=== PATIENT | male | born 1990 ===

== ENCOUNTER 2021-04-10 18:47 | Emergency (ER) | payer SELFPAY ==
[2021-04-10 19:03] VITALS: BP 129/72; PULSE 75; RESP 16; TEMP 36.6; O2SAT 99; BMI 24.9
--- NOTE | 2021-04-10 19:10 | DI.RAD.S_ITS ---
PROCEDURE: XR ELBOW RT MIN 3V INDICATIONS: Fall from ladder elbow/forearm pain TECHNIQUE: 3 views of the elbow were acquired. COMPARISON: None. FINDINGS: Bones: A small osseous fragment is seen projecting over the trochlea on the lateral view, which is not definitely visualized on the additional views. Findings could represent a small fracture of uncertain origin. The radial head appears to be intact. No suspicious bony lesions. Soft tissues: Questionable small elbow joint effusion. No suspicious soft tissue calcifications. IMPRESSION: Possible small osseous fragment projecting over the elbow joint on lateral view only, which could represent a small fracture of uncertain origin. Further evaluation could be obtained with CT, or repeat radiographs in 7-10 days. Dictated by: Enrrique Mayorga M.D. on 04/10/2021 at 20:09 Approved by: Enrrique Mayorga M.D. on 04/10/2021 at 20:12
--- NOTE | 2021-04-10 19:10 | DI.RAD.S_ITS ---
PROCEDURE: XR FOOT LT MIN 3V INDICATIONS: Fell from ladder ankle/foot pain TECHNIQUE: 3 views of the foot were acquired. COMPARISON: None. FINDINGS: Bones: No acute fractures or dislocations. No suspicious bony lesions. There is possible mild widening of the 1st intermetatarsal distance. Soft tissues: Soft tissue edema is seen at the dorsum of the foot. IMPRESSION: Possible mild widening of the 1st intermetatarsal distance could indicate an injury to the Lisfranc ligament. However, the findings are nonspecific. If there is clinical suspicion, bilateral weight-bearing radiographs of the feet could be obtained to evaluate for symmetry compared to the contralateral side. No acute fracture is seen. Soft tissue edema is seen at the dorsum of the foot. Dictated by: Enrrique Mayorga M.D. on 04/10/2021 at 20:07 Approved by: Enrrique Mayorga M.D. on 04/10/2021 at 20:09
--- NOTE | 2021-04-10 19:10 | DI.RAD.S_ITS ---
PROCEDURE: XR ANKLE LT MIN 3V INDICATIONS: Fall from ladder ankle/foot TECHNIQUE: 3 views of the ankle were acquired. COMPARISON: None. FINDINGS: Bones: No acute fractures or dislocations. Ankle mortise is normally aligned. No suspicious bony lesions. Soft tissues: Soft tissue edema is seen at the dorsum of the foot. IMPRESSION: No acute osseous abnormality. If clinical suspicion and/or symptoms persist, additional imaging with repeat plain films, or advanced imaging (e.g. CT, MRI) may be helpful for further assessment. Dictated by: Enrrique Mayorga M.D. on 04/10/2021 at 20:12 Approved by: Enrrique Mayorga M.D. on 04/10/2021 at 20:13
--- NOTE | 2021-04-10 19:11 | DI.RAD.S_ITS ---
PROCEDURE: XR FOREARM RT 2V INDICATIONS: Fall from ladder elbow/forearm pain TECHNIQUE: 2 views of the forearm were acquired. COMPARISON: None. FINDINGS: Bones: No acute fractures or dislocations. No suspicious bony lesions. Soft tissues: No suspicious soft tissue calcifications or masses. IMPRESSION: No acute osseous abnormality. If clinical suspicion and/or symptoms persist, additional imaging with repeat plain films, or advanced imaging (e.g. CT, MRI) may be helpful for further assessment. Dictated by: Enrrique Mayorga M.D. on 04/10/2021 at 20:13 Approved by: Enrrique Mayorga M.D. on 04/10/2021 at 20:14
--- NOTE | 2021-04-10 21:51 | ED.FALL ---
HPI - Fall General Chief Complaint: Fall Stated Complaint: Fell off ladder, LT foot RT arm injury Time Seen by Provider: 04/10/21 21:51 Source: patient Mode of arrival: Wheelchair History of Present Illness HPI Narrative: Patient is a 30-year-old male who presents after fall from ladder. He said he was picking an apple around noon when he fell landing on his forearms and feet. His left foot is quite swollen and hurts a lot and his right elbow also request. Did not hit his head he did not lose consciousness he has no neck pain no nausea vomiting. He took Tylenol earlier for pain but still having some discomfort. He is able to move toes in his left foot but does hurt. Related Data Previous Rx's Medication Instructions Recorded hydrocodone 5 mg-acetaminophen 325 1 tab PO Q6H PRN #10 tab 04/10/21 mg tablet Allergies Allergy/AdvReac Type Severity Reaction Status Date / Time No Known Drug Allergies Allergy Verified 04/10/21 19:03 Review of Systems Review of Systems Narrative: GENERAL: Denies chills,fever HEENT: Denies throat pain RESPIRATORY: Denies dyspnea, cough, wheezing CARDIOVASCULAR: Denies chest pain, palpitations GASTROINTESTINAL: Denies nausea, vomiting MUSCULOSKELETAL: See HPI SKIN: No rash, no laceration, no pruritus NEUROLOGIC: Denies weakness, dizziness, headache, numbness, LOC 8 point review of systems is negative except for those stated above and HPI Patient History Social History Smoking Status: Never smoker Smoking Status: Never smoker alcohol intake frequency: holidays/special occasions only Substance Use Type: marijuana Exam Initial Vital Signs Initial Vital Signs: Vital Signs Temperature 97.8 F 04/10/21 19:03 Pulse Rate 75 04/10/21 19:03 Respiratory Rate 16 04/10/21 19:03 Blood Pressure 129/72 04/10/21 19:03 Pulse Oximetry 99 04/10/21 19:03 GENERAL: Alert well-appearing 30-year-old male and in [no acute] distress. HEENT: Head atraumatic,EOMI, pupils reactive, face symmetric, [moist] mucous membranes NECK: No vertebral tenderness no step-offs full range of motion CARDIOVASCULAR: Regular rate and rhythm without murmurs, rubs or gallops. RESPIRATORY: Breath sounds equal bilaterally, no wheezes rales or rhonchi. ABDOMEN: Soft, nontender. Normoactive bowel sounds all 4 quadrants. No guarding or rebound. EXTREMITIES: Normal range of motion, no clubbing or edema. Neurovascularly intact Significant left foot swelling able to move toes. Ankle within normal limits Achilles tendon intact calf is soft cap refill less than 2 seconds Elbow swelling held in flexion is pain with pronation supination decreased range of motion due to pain and swelling. Clavicles and shoulders okay bilaterally. No numbness tingling or weakness. Neurovascularly intact. NEUROLOGICAL: Alert and oriented x4.Normal gait and speech. Cranial nerves II through XII grossly intact. SKIN: Warm, dry, no laceration, no petechiae, no rashes or lesions. Procedures Orthopedic Splinting/Casting Injury #1: Side: right Upper Extremity Injury Location: elbow Upper Extremity Immobilizer: sling/shoulder immobilizer and posterior splint Post splinting neuro exam: intact Post splinting vascular exam: intact Placed by: Nursing Injury #2: Side: left Lower Extremity Injury Location: foot Lower Extremity Immobilizer: boot orthosis Post splinting neuro exam: intact Post splinting vascular exam: intact Placed by: Nursing Course Orders Ordered: ED Orders 04/10/21 22:00 XR foot LT 2V Stat XR foot RT 2V Stat Discontinued Medications Hydrocodone Bitart/Acetaminophen (Hydrocodone/Acet 5/325 Prepack) 1 bottle MISC SEEINSTR ONE Stop: 04/10/21 23:59 Last Admin: 04/11/21 00:03 Dose: 1 bottle Documented by: DUANE Ibuprofen (Ibuprofen 400 Mg Tablet) 800 mg PO NOW ONE Stop: 04/10/21 22:01 Last Admin: 04/10/21 22:07 Dose: 800 mg Documented by: ANNE Vital Signs Vital signs: Vital Signs - 8 hr 04/11/21 00:07 Pulse Rate 75 Respiratory Rate 16 Blood Pressure 125/80 Pulse Oximetry 99 MDM - Fall Imaging Data Extremity x-ray #1: Radiologist's Impression: PROCEDURE:? XR ANKLE LT MIN 3V ? INDICATIONS:? Fall from ladder ankle/foot ? TECHNIQUE:? 3 views of the ankle were acquired.? ? COMPARISON:? None. ? FINDINGS:? ? Bones:? No acute fractures or dislocations.? Ankle mortise is normally aligned.? No suspicious bony lesions.? ? Soft tissues:? Soft tissue edema is seen at the dorsum of the foot. ? ? IMPRESSION:? No acute osseous abnormality.? If clinical suspicion and/or symptoms persist, additional imaging with repeat plain films, or advanced imaging (e.g. CT, MRI) may be helpful for further assessment. ? ? ? Dictated by: Enrrique Mayorga M.D. on 04/10/2021 at 20:12 ? ? Extremity x-ray #2: Radiologist's Impression: PROCEDURE:? XR ANKLE LT MIN 3V ? INDICATIONS:? Fall from ladder ankle/foot ? TECHNIQUE:? 3 views of the ankle were acquired.? ? COMPARISON:? None. ? FINDINGS:? ? Bones:? No acute fractures or dislocations.? Ankle mortise is normally aligned.? No suspicious bony lesions.? ? Soft tissues:? Soft tissue edema is seen at the dorsum of the foot. ? ? IMPRESSION:? No acute osseous abnormality.? If clinical suspicion and/or symptoms persist, additional imaging with repeat plain films, or advanced imaging (e.g. CT, MRI) may be helpful for further assessment. ? ? ? Dictated by: Enrrique Mayorga M.D. on 04/10/2021 at 20:12 ? ? Extremity x-ray #3: Radiologist's Impression: PROCEDURE:? XR ANKLE LT MIN 3V ? INDICATIONS:? Fall from ladder ankle/foot ? TECHNIQUE:? 3 views of the ankle were acquired.? ? COMPARISON:? None. ? FINDINGS:? ? Bones:? No acute fractures or dislocations.? Ankle mortise is normally aligned.? No suspicious bony lesions.? ? Soft tissues:? Soft tissue edema is seen at the dorsum of the foot. ? ? IMPRESSION:? No acute osseous abnormality.? If clinical suspicion and/or symptoms persist, additional imaging with repeat plain films, or advanced imaging (e.g. CT, MRI) may be helpful for further assessment. ? ? ? Dictated by: Enrrique Mayorga M.D. on 04/10/2021 at 20:12 ? ? weight bearing foot xr: Radiologist's Impression: PROCEDURE:? XR FOOT LT 2V ? INDICATIONS:? possible lisfranc injury ? TECHNIQUE:? 2 views of the foot were acquired.? ? COMPARISON:? [facility], , XR FOOT LT MIN 3V, 04/10/2021, 19:09. ? FINDINGS:? ? Bones:? Linear calcification adjacent to lateral aspect of 1st metatarsal base with widened 1st inter metatarsal space not significantly changed from earlier studies suggestive of acute avulsion injury and injury to the Lisfranc ligament.? No other fracture or dislocation.? No suspicious bony lesions.? ? Soft tissues:? No tibiotalar joint effusion.? Achilles tendon appears normal.? ? ? IMPRESSION:? Persistent widening of 1st intermetatarsal space and small calcifications adjacent to lateral aspect of 1st metatarsal base consistent with acute avulsion injury involving Lisfranc ligament.? No other fracture or dislocation. ? ? Dictated by: Esdras Westfall M.D. on 04/10/2021 at 22:20 ? ? Approved by: Esdras Westfall M.D. on 04/10/2021 at 22:22 ? PROCEDURE:? XR FOOT RT 2V ? INDICATIONS:? comparission to left for lisfranc injury ? TECHNIQUE:? 2 views of the foot were acquired.? ? COMPARISON:? [facility], CR, XR FOOT LT MIN 3V, 04/10/2021, 19:09. ? FINDINGS:? ? Bones:? There is normal alignment of right foot with weight-bearing.? Lisfranc joint space is well preserved.? No fractures or dislocations.? No suspicious bony lesions.? ? Soft tissues:? No tibiotalar joint effusion.? Achilles tendon appears normal.? ? ? IMPRESSION:? No right foot fracture or dislocation.? Normal right foot alignment with weight bearing.? ? ? Dictated by: Esdras Westfall M.D. on 04/10/2021 at 22:19 ? [facility] Narrative Medical decision making narrative: Left foot has significant swelling and pain. Initial x-ray shows will lisfranc ligamentous injury without fracture. He is also having significant pain in his right elbow also shows possible fracture there. Weight-bearing foot x-rays are done which confirms probable lisfranc ligament injury. Dr. Bettencourt orthopedic has been consulted at this time he recommends walking boot with out weight-bearing for the left foot. And posterior slab and sling for right arm. He is offered crutches however states that they have crutches at. He is supposed to be going back over to [place] in a week and half. Pain is controlled with Tylenol and Motrin. However he is given stronger hydrocodone for worsening pain. At this time he is able to move toes. No concerning signs for compartment syndrome at this time. Recommend he keep it elevated and put ice on it. Discharge Plan Departure Patient Disposition: Home Clinical Impression: Lisfranc's sprain Qualifiers: Encounter type: initial encounter Laterality: left Qualified Code(s): S93.622A - Sprain of tarsometatarsal ligament of left foot, initial encounter Elbow fracture, right Qualifiers: Encounter type: initial encounter Fracture type: closed Qualified Code(s): S42.401A - Unspecified fracture of lower end of right humerus, initial encounter for closed fracture Instructions: DI for Foot Fracture, DI for Elbow Fracture Activity Restrictions/Additional Instructions: *You have been diagnosed with severe left foot sprain, right elbow fracture *What to do: DO NOT PUT WEIGHT ON LEFT FOOT. Elevate. Ice 20-30 minutes at a time. Keep right arm in sling *Continue to take medications as directed [place] 1 tablet every 6 hours only if needed for severe pain Motrin 800 mg every 8 hours if needed moderate pain *Follow up with your primary care provider in 2-3 days Call orthopedics to schedule follow-up appointment, try to see them before you leave *Return to ER if you should have increasing pain inability to move toes, or any new, worsening or concerning symptoms Prescriptions: New hydrocodone-acetaminophen 5-325 mg tablet 1 tab PO Q6H PRN (Reason: pain) Qty: 10 RF: 0 Referrals: [facility] [Provider Group] Lane Bettencourt MD [Physician] -
--- NOTE | 2021-04-10 22:00 | DI.RAD.S_ITS ---
PROCEDURE: XR FOOT RT 2V INDICATIONS: comparission to left for lisfranc injury TECHNIQUE: 2 views of the foot were acquired. COMPARISON: [facility], CR, XR FOOT LT MIN 3V, 04/10/2021, 19:09. FINDINGS: Bones: There is normal alignment of right foot with weight-bearing. Lisfranc joint space is well preserved. No fractures or dislocations. No suspicious bony lesions. Soft tissues: No tibiotalar joint effusion. Achilles tendon appears normal. IMPRESSION: No right foot fracture or dislocation. Normal right foot alignment with weight bearing. Dictated by: Esdras Westfall M.D. on 04/10/2021 at 22:19 Approved by: Esdras Westfall M.D. on 04/10/2021 at 22:20
--- NOTE | 2021-04-10 22:00 | DI.RAD.S_ITS ---
PROCEDURE: XR FOOT LT 2V INDICATIONS: possible lisfranc injury TECHNIQUE: 2 views of the foot were acquired. COMPARISON: [facility], CR, XR FOOT LT MIN 3V, 04/10/2021, 19:09. FINDINGS: Bones: Linear calcification adjacent to lateral aspect of 1st metatarsal base with widened 1st inter metatarsal space not significantly changed from earlier studies suggestive of acute avulsion injury and injury to the Lisfranc ligament. No other fracture or dislocation. No suspicious bony lesions. Soft tissues: No tibiotalar joint effusion. Achilles tendon appears normal. IMPRESSION: Persistent widening of 1st intermetatarsal space and small calcifications adjacent to lateral aspect of 1st metatarsal base consistent with acute avulsion injury involving Lisfranc ligament. No other fracture or dislocation. Dictated by: Esdras Westfall M.D. on 04/10/2021 at 22:20 Approved by: Esdras Westfall M.D. on 04/10/2021 at 22:22
[2021-04-10] MEDS: IBUPROFEN 400 MG TABLET 800 MG PO (22:07)
[2021-04-11] MEDS: HYDROCODONE/ACET 5/325 PREPACK 1 BOTTLE MISC (00:03)
[2021-04-11 00:07] VITALS: BP 125/80; PULSE 75; RESP 16; O2SAT 99
== END 2021-04-11 00:18 | disposition home or self-care (01) ==
PROVIDERS: Emergency Provider Emergency Medicine
DX: S93.622A Sprain of tarsometatarsal ligament of left foot, initial encounter (principal); S42.401A Unspecified fracture of lower end of right humerus, initial encounter for closed fracture; W11.XXXA Fall on and from ladder, initial encounter
CPT/HCPCS: 73080; 73090; 73610; 73620; 73630; 99283